=== PATIENT | male | born 1960 | race American Indian/Alaskan Native ===

== ENCOUNTER 2019-04-11 05:47 | Observation (INO) | payer BC ==
[2019-04-05 15:39] LABS: Basophils % (Auto) 0.8 % (0.0-1.8); Eosinophils # (Auto) 0.4 K/mm3 (0.0-0.4); Eosinophils % (Auto) 7.7 % (0.0-4.3); Hematocrit 43.3 % (35.5-45.6); Hemoglobin 14.9 gm/dl (11.8-15.2); Lymphocytes # (Auto) 1.9 K/mm3 (1.2-5.4); Lymphocytes % (Auto) 34.8 % (13.4-35.0); Mean Corpuscular HGB Conc 34 % (32-34); Mean Corpuscular Volume 95 fl (84-94); Monocytes # (Auto) 0.5 K/mm3 (0.0-0.8); Monocytes % (Auto) 9.1 % (0.0-7.3); Platelet Count 220 K/mm3 (140-440); Red Blood Count 4.56 M/mm3 (3.65-5.03); Red Cell Distribution Width 14.1 % (13.2-15.2)
[2019-04-05 15:50] LABS: INR 0.82 (0.87-1.13)
[2019-04-05 16:07] LABS: Alanine Aminotransferase 57 units/L (7-56); Albumin 4.8 g/dL (3.9-5); BUN/Creatinine Ratio 10; Blood Urea Nitrogen 11 mg/dL (9-20); Calcium 9.8 mg/dL (8.4-10.2); Hemolysis Index 41
[2019-04-11] MEDS ORDERED: ANCEF/STERILE WATER 2 GM/20 ML IV NR (06:00)
[2019-04-11] MEDS ORDERED: NACL BACTERIOSTATIC INFILTRATI ONE (06:13)
[2019-04-11] MEDS ORDERED: VERSED IV NR (07:27)
[2019-04-11] MEDS ORDERED: ZEMURON IV ONE (07:28)
[2019-04-11] MEDS ORDERED: NEURONTIN PO NR (07:28)
[2019-04-11] MEDS ORDERED: XYLOCAINE MPF 2% ONE (07:28)
[2019-04-11] MEDS ORDERED: PEPCID IV NR (07:28)
[2019-04-11] MEDS ORDERED: SUBLIMAZE ONE (07:29)
[2019-04-11] MEDS ORDERED: LACTATED RINGERS 1,000 ML IV SCH (07:29)
[2019-04-11] MEDS ORDERED: DIPRIVAN 10 MG/ML IV ONE ×2 (07:30→10:43)
[2019-04-11] MEDS ORDERED: CALCIUM CHLORIDE IV ONE ×2 (07:40→09:14)
[2019-04-11] MEDS ORDERED: ACD-A 500 ML IV ONE (07:40)
[2019-04-11] MEDS ORDERED: MARCAINE-EPI 0.5%-1:200,000 INFILTRATI ONE ×2 (07:40→09:13)
[2019-04-11] MEDS ORDERED: METHYLENE BLUE ONE (07:41)
--- NOTE | 2019-04-11 08:14 | Anesthesia Day of Surgery ---
Anesthesia Day of Surgery - Day of Surgery Patient Examined: Yes Patient H&P Reviewed: Yes Patient is NPO: Yes Beta Blockers: No Cardiac Clearance: Yes (HPI/bedside examination ) Pulmonary Clearance: Yes (HPI/bedside examination ) Doug's Test: N/A
--- NOTE | 2019-04-11 08:17 | Anesthesia Consultation ---
Anesthesia Consult and Med Hx - Airway Anesthetic Teeth Evaluation: Edentulous ROM Head & Neck: Adequate Mental/Hyoid Distance: Adequate Mallampati Class: Class II Intubation Access Assessment: Probably Good - Pulmonary Exam CTA: Yes - Cardiac Exam Cardiac Exam: RRR - Pre-Operative Health Status ASA Pre-Surgery Classification: ASA3 Proposed Anesthetic Plan: General - Pre-Anesthesia Comment Pre-Anesthesia Comments: NPO status, has HLD on statin, POCT glucose in preop 140s, last took metformin on 04/10 - Pulmonary Hx Smoking: No Hx Asthma: No Hx Respiratory Symptoms: No SOB: No Hx Sleep Apnea: No (FRANK PRE SCREEN LOW RISK) - Cardiovascular System Hx Hypertension: No (denies ) Hx Coronary Artery Disease: No Hx Peripheral Vascular Disease: No - Gastrointestinal Hx Gastroesophageal Reflux Disease: Yes (medication controlled ) - Hematic Hx Anemia: No - Other Systems Hx Alcohol Use: No Hx Substance Use: No Hx Cancer: Yes (prostate ) Hx Obesity: No - Additional Comments Anesthesia Medical History Comments: ASA 3 HLD, mild HTN (no meds), prostate CA, and well controlled DM on metformin (no HbA1c on file), reassuring airway - communicated HPI to Dr. Gibbs, the attending on record
[2019-04-11] MEDS ORDERED: NACL 0.9% IR ONE (09:13)
[2019-04-11] MEDS ORDERED: WATER FOR IRRIG STERILE IR ONE (09:13)
[2019-04-11] MEDS ORDERED: ACD-A IV ONE (09:14)
[2019-04-11] MEDS ORDERED: ZOFRAN ONE (10:04)
[2019-04-11] MEDS ORDERED: DILAUDID ONE (10:05)
[2019-04-11] MEDS ORDERED: NARCAN 0.4 MG/1 ML IV PRN (11:01)
[2019-04-11] MEDS ORDERED: MORPHINE IV PRN (11:01)
[2019-04-11] MEDS ORDERED: AMBIEN PO PRN (11:01)
[2019-04-11] MEDS ORDERED: D50W (25GM) Syringe IV PRN (11:01)
[2019-04-11] MEDS ORDERED: NORCO 5/325 PO PRN (11:01)
[2019-04-11] MEDS ORDERED: ZOFRAN IV PRN (11:01)
--- NOTE | 2019-04-11 11:01 | Short Stay Summary ---
Short Stay Documentation Date of service: 04/11/19 - History H&P: obtained from office - Allergies and Medications Current Medications: Allergies No Known Allergies Allergy (Verified 03/30/19 10:12) Home Medications Medication Instructions Recorded Confirmed Last Taken Type metFORMIN [Glucophage] 500 mg PO BID 03/30/19 03/30/19 04/10/19 History Cetirizine HCl [Zyrtec 10mg tab] 10 mg PO DAILY 04/11/19 04/11/19 04/10/19 Hi story Omeprazole 40 mg PO DAILY 04/11/19 04/11/19 1 Week Ago History ~04/04/19 Pravastatin [Pravachol] 40 mg PO DAILY 04/11/19 04/11/19 04/10/19 History Active Medications Cefazolin Sodium (Ancef/Sterile Water 2 Gm/20 Ml) 2 gm IV PREOP NR Stop: 04/11/19 21:00 Lactated Ringer's (Lactated Ringers) 1,000 mls @ 100 mls/hr IV DIRECT EDDIE Last Admin: 04/11/19 07:40 Dose: 100 mls/hr Documented by: - Brief post op/procedure progress note Date of procedure: 04/11/19 Pre-op diagnosis: prostate ca Post-op diagnosis: same Procedure: robotic prostatectomy Anesthesia: GETA Surgeon: MARTÍN REZA Estimated blood loss: other (150cc) Pathology: list (prostate) Specimen disposition: to lab Condition: stable - Hospital course Hospital course: bactrim, norco, post op info on chart drain removed home with olivera - Disposition Condition at discharge: Stable Short Stay Discharge Plan Follow up with: COLLEEN ARANDA MD [Primary Care Provider] - 7 Days
--- NOTE | 2019-04-11 12:18 | Operative Report ---
PREOPERATIVE DIAGNOSIS: Prostate cancer, Cando 8. POSTOPERATIVE DIAGNOSIS: Prostate cancer, Jonatan 8. PROCEDURE: Robotic-assisted laparoscopic prostatectomy. SURGEON: Sam Middleton MD ANESTHESIA: General. REAL PROPERTY APPRAISER: Amanda Ji. ESTIMATED BLOOD LOSS: 150 mL. FLUIDS: Crystalloid. DRAIN: Shashank-Alfred drain x 1. INDICATIONS: This 59-year-old male was actually seen by Dr. Pinedo in our [place] office. He underwent transrectal ultrasound and biopsy of his prostate. He was found to have Cando 8 adenocarcinoma of the prostate. He is referred to ca for robotic prostatectomy. His primary care physician is Dr. Ronnie Obrien. Risks, benefits, and complications were explained to the patient and his daughters. They agreed to proceed with surgical intervention. DESCRIPTION OF PROCEDURE: The patient was taken to the operative suite and placed in the supine position. After adequate general anesthesia, he was placed in a modified dorsal lithotomy position, prepped and draped in a sterile fashion. Rboert catheter was placed on the operative field. A 1-inch supraumbilical incision was made with the Bovie. Towel clips were placed. Veress needle was used for drop test, which was negative. Opening pressure was 4 cm of water. Insufflation of the abdomen to 15 cm of water was performed without difficulty. The pubic symphysis was marked in the midline, 15 cm cephalad was marked, additional 9 cm lateral as well as another additional 9 cm lateral marked due to small pelvis. The robotic ports were marked. A 0-degree lens was placed under direct vision in the supraumbilical port. No intraabdominal injury could be appreciated. Under direct vision, the 8 mm ports were placed on the left side, an 8 mm port on the right as well as a 10 mm and 5 mm helper ports. The patient was then placed in exaggerated Trendelenburg position. Robotic cart was docked between the legs. There were some adhesions in the left colon, which were taken down without difficulty. The second arch was identified behind the prostate gland. It was scored. Seminal vesicles and vas deferens were dissected out. The dissection to the apex of the prostate was also performed. Then copious irrigation was performed and adequate hemostasis was achieved. Lateral to the lateral umbilical ligament was scored bilaterally. Bladder flap was dropped exposing the pubic rami. Endopelvic fascia was opened bilaterally without difficulty. There was a small tedious vessel coming from the area of the iliacs. A small white clip was placed on it and it was cauterized. Dorsal vein complex was identified, controlled with a 60 mm vascular stapler. Endopelvic fascia was taken down laterally without difficulty. Manipulation of the Robert was able to identify the bladder neck, which was scored anteriorly. Robert catheter was deflated and brought anteriorly and used for traction. Posterior bladder neck was transected without difficulty. A 2-0 Vicryl helper stitch was placed at the 12 o'clock position of the bladder neck. The seminal vesicles and vas deferens were brought cephalad. Lateral pedicles were then controlled with a 60 mm vascular stapler. It was dissected down to the apex of the prostate. [place] of the dorsal vein complex was transected as well as the urethra distally. Prostate was placed in an EndoCatch bag. Copious irrigation was performed and adequate hemostasis achieved. Attention was then taken to the bladder neck, which was a bladder neck reconstruction at the 5 o'clock and 7 o'clock positions with 2-0 Vicryl in an interrupted fashion was performed. Double armed V-Loc stitch was placed in the 6 o'clock position of the bladder neck and the corresponding aspect of the urethra. Running stitch bilaterally was placed. A new 18-[place] Robert catheter was placed without difficulty into the bladder, irrigated, no clots, 20 mL in the balloon. Bladder suspension stitch was used attaching the V-Loc stitch to the back of the pubic rami bilaterally. Platelet rich plasma was injected in the anastomosis as well as platelet poor plasma and a platelet membrane. Shashank-Alfred drain was brought out through the left 8 mm port and secured with 2-0 silk in interrupted fashion. The robotic cart was then undocked. The supraumbilical incision was extended to allow removal of the prostate. That incision was then closed with 0 Vicryl in interrupted fashion x 3. This Shashank-Alfred drain was secured with a 2-0 silk in interrupted fashion. Robert catheter site port was folded over and tied with 0 silk in an interrupted fashion. The patient tolerated the procedure well. He was extubated and taken to recovery room. He will be observed overnight and go home on Bactrim and Dumont. Amanda Ji was the boiler assistant operator. She was present throughout the case at the bedside to assist with surgical dissection. [facility]# [id number] [place]YCE
[2019-04-11] MEDS: NACL 0.9% 1000 ML 1,000 ML IV SCH ×2 (12:42→22:14)
--- NOTE | 2019-04-11 12:54 | Consultation ---
History of Present Illness - Reason for Consult Consult date: 04/11/19 Medical management Requesting physician: MARTÍN MIDDLETON - History of Present Illness 59 YO Male with HTN, DM, HLD, GERD admitted to [facility] for elective Prostatectomy. Consult placed by Dr. Middleton for medical management. Pt seen and evaluated upon arrival to his room. Pt denies fever, chills, CP, Palpitations, NVD, Productive cough, or recent ill contacts. Pt states that pain is controlled. No reported nursing events. Past History Past Medical History: diabetes, GERD, hypertension, hyperlipidemia Past Surgical History: Other (Proatatectomy) Social history: single. denies: smoking, prescription drug abuse Family history: diabetes, hypertension Medications and Allergies Allergies Allergy/AdvReac Type Severity Reaction Status Date / Time No Known Allergies Allergy Verified 03/30/19 10:12 Home Medications Medication Instructions Recorded Confirmed Last Taken Type metFORMIN [Glucophage] 500 mg PO BID 03/30/19 03/30/19 04/10/19 History Cetirizine HCl [Zyrtec 10mg tab] 10 mg PO DAILY 04/11/19 04/11/19 04/10/19 History Omeprazole 40 mg PO DAILY 04/11/19 04/11/19 1 Week Ago History ~04/04/19 Pravastatin [Pravachol] 40 mg PO DAILY 04/11/19 04/11/19 04/10/19 History Active Meds: Active Medications Acetaminophen/Hydrocodone Bitart ([place] 5/325) 2 each PO Q4H PRN PRN Reason: Pain, Moderate (4-6) Cefazolin Sodium (Ancef/Sterile Water 2 Gm/20 Ml) 2 gm IV PREOP NR Stop: 04/11/19 21:00 Dextrose (D50w (25gm) Syringe) 50 ml IV PRN PRN PRN Reason: Hypoglycemia Lactated Ringer's (Lactated Ringers) 1,000 mls @ 100 mls/hr IV DIRECT EDDIE Last Admin: 04/11/19 07:40 Dose: 100 mls/hr Documented by: Sodium Chloride (Nacl 0.9% 1000 Ml) 1,000 mls @ 100 mls/hr IV DIRECT EDDIE Last Admin: 04/11/19 12:42 Dose: 100 mls/hr Documented by: Cefazolin Sodium (Ancef/Ns 1 Gm/50 Ml) 1 gm in 50 mls @ 100 mls/hr IV Q8H [facility]; Protocol Stop: 04/11/19 20:29 Insulin Human Regular (Humulin R) 0 units SUB-Q Q6HR [facility]; Protocol Metformin HCl (Glucophage) 500 mg PO BID [facility] Morphine Sulfate (Morphine) 2 mg IV Q4H PRN PRN Reason: Pain, Moderate (4-6) Naloxone HCl (Narcan 0.4 Mg/1 Ml) 0.1 mg IV Q2MIN PRN PRN Reason: Res Rate </= 8 or 02 SAT < 92% Ondansetron HCl (Zofran) 4 mg IV Q8H PRN PRN Reason: Nausea And Vomiting Pantoprazole Sodium (Protonix) 40 mg PO DAILY [facility] Pravastatin Sodium (Pravachol) 40 mg PO DAILY [facility] Zolpidem Tartrate (Ambien) 5 mg PO QHS PRN PRN Reason: Sleep Review of Systems Constitutional: no weight loss, no weight gain, no fever Ears, nose, mouth and throat: no ear pain, no tinnitis, no nose pain Cardiovascular: no chest pain, no palpitations, no edema Respiratory: no cough, no excessive sputum, no shortness of breath Gastrointestinal: no abdominal pain, no vomiting, no constipation Genitourinary Male: no hematuria, no discharge Rectal: no pain, no incontinence, no bleeding Musculoskeletal: no neck stiffness, no shooting arm pain, no low back pain Integumentary: no rash, no redness, no wounds Neurological: no head injury, no weakness, no tingling, no syncope Psychiatric: no anxiety, no change in sleep habits, no insomnia, no change in libido Endocrine: no cold intolerance, no polyphagia, no excessive thirst, no excessive sweating Hematologic/Lymphatic: no easy bruising, no easy bleeding Allergic/Immunologic: no urticaria, no allergic rhinitis, no persistent infections Exam - Constitutional Vitals: Temp Pulse Resp BP Pulse Ox 98.2 F 82 18 127/60 98 04/11/19 11:47 04/11/19 11:47 04/11/19 11:47 04/11/19 11:47 04/11/19 11:47 General appearance: Present: no acute distress, well-nourished - EENT Eyes: Present: PERRL ENT: hearing intact, clear oral mucosa - Neck Neck: Present: supple, normal ROM - Respiratory Respiratory effort: normal Respiratory: bilateral: CTA - Cardiovascular Heart Sounds: Present: S1 & S2. Absent: rub, click - Extremities Extremities: pulses symmetrical, No edema Peripheral Pulses: within normal limits - Abdominal General gastrointestinal: Present: soft, non-tender, non-distended, normal bowel sounds Male genitourinary: Present: normal - Integumentary Integumentary: Present: clear, warm, dry - Musculoskeletal Musculoskeletal: gait normal, strength equal bilaterally - Psychiatric Psychiatric: appropriate mood/affect, intact judgment & insight - Neurologic Neurologic: CNII-XII intact, moves all extremities Results - Labs CBC & Chem 7: 04/05/19 15:05 04/05/19 15:05 Labs: Abnormal lab results 04/11/19 04/11/19 Range/Units 06:48 11:31 POC Glucose 149 H 245 H (70-105) Assessment and Plan - Patient Problems (1) HTN (hypertension) Current Visit: Yes Status: Acute Qualifiers: Hypertension type: essential hypertension Qualified Code(s): I10 - Essential (primary) hypertension Plan to address problem: Monitor bp q shift, IV hydralazine prn, (2) HLD (hyperlipidemia) Current Visit: Yes Status: Acute Qualifiers: Hyperlipidemia type: mixed hyperlipidemia Qualified Code(s): E78.2 - Mixed hyperlipidemia Plan to address problem: Low cholesterol diet, statin therapyz (3) GERD (gastroesophageal reflux disease) Current Visit: Yes Status: Acute Qualifiers: Esophagitis presence: without esophagitis Qualified Code(s): K21.9 - Gastro-esophageal reflux disease without esophagitis Plan to address problem: PPI therapy, (4) Diabetes Current Visit: Yes Status: Acute Plan to address problem: ADA diet, insulin, accu check, hypoglycemia protocol
[2019-04-11] MEDS: ANCEF/NS 1 GM/50 ML 1 GM/50 ML BAG IV SCH ×2 (12:57→22:15)
[2019-04-11] MEDS: HumuLIN R SUB-Q SCH ×3 (12:58→23:11)
[2019-04-11] MEDS ORDERED: GLUCOPHAGE PO SCH (22:00)
[2019-04-12] MEDS ORDERED: APRESOLINE IV PRN (05:09)
[2019-04-12 05:52] LABS: Basophils # (Auto) 0.1 K/mm3 (0.0-0.1); Basophils % (Auto) 0.7 % (0.0-1.8); Eosinophils % (Auto) 0.3 % (0.0-4.3); Hematocrit 37.3 % (35.5-45.6); Hemoglobin 12.9 gm/dl (11.8-15.2); Lymphocytes # (Auto) 1.8 K/mm3 (1.2-5.4); Lymphocytes % (Auto) 20.5 % (13.4-35.0); Mean Corpuscular HGB Conc 35 % (32-34); Mean Corpuscular Volume 96 fl (84-94); Monocytes # (Auto) 0.9 K/mm3 (0.0-0.8); Monocytes % (Auto) 10.5 % (0.0-7.3); Platelet Count 178 K/mm3 (140-440); Red Cell Distribution Width 14.3 % (13.2-15.2)
[2019-04-12 06:19] LABS: BUN/Creatinine Ratio 10; Blood Urea Nitrogen 11 mg/dL (9-20); Calcium 8.9 mg/dL (8.4-10.2); Hemolysis Index 7
[2019-04-12] MEDS: HumuLIN R SUB-Q SCH ×2 (06:36→13:09)
[2019-04-12] MEDS: NACL 0.9% 1000 ML 1,000 ML IV SCH (06:41)
[2019-04-12 08:19] VITALS: BP 119/77
[2019-04-12] MEDS ORDERED: PROTONIX PO SCH (10:00)
[2019-04-12] MEDS ORDERED: PRAVACHOL PO SCH (10:00)
[2019-04-12] MEDS ORDERED: NON-FORMULARY (Omeprazole [Omeprazole] 40 MG) PO SCH (10:00)
--- NOTE | 2019-04-12 14:58 | Progress Note ---
Assessment and Plan Assessment and plan: 59 YO Male with HTN, DM, HLD, GERD admitted to [facility] for elective Prostatectomy. Consult placed by Dr. Middleton for medical management. Pt denies fever, chills, CP, Palpitations, NVD, Productive cough, or recent ill contacts. Pt states that pain is controlled. No reported nursing events. Hypertension - Controlled continue current medication regimen Diabetes mellitus - Continue sliding scale insulin Prostate cancer status post prostatectomy - Continue management per primary Patient is medically stable, will continue along. Thank you for the consultation History Interval history: Patient was seen and evaluated this morning, patient didn't have any complaints. Hospitalist Physical - Physical exam Narrative exam: Not in cardiopulmonary distress. The patient appeared well nourished and normally developed. Vital signs as documented. Head exam is unremarkable. No scleral icterus . Neck is without jugular venous distension, thyromegaly, or carotid bruits. Lungs are clear to auscultation. Cardiac exam reveals regular rate and Rhythm. First and second heart sounds normal. No murmurs, rubs or gallops. Abdominal exam reveals normal bowel sounds, no masses, no organomegaly and no aortic enlargement. Extremities are nonedematous and both femoral and pedal pulses are normal. 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 No focal weakness. - Constitutional Vitals: Temp Pulse Resp BP Pulse Ox 98.3 F 95 H 18 119/77 96 04/12/19 08:00 04/12/19 08:00 04/12/19 08:00 04/12/19 08:00 04/12/19 04:17 General appearance: Present: no acute distress, well-nourished Results - Labs CBC & Chem 7: 04/12/19 05:31 04/12/19 05:31 Labs: Laboratory Last Values WBC 8.6 K/mm3 (4.5-11.0) 04/12/19 05:31 RBC 3.90 M/mm3 (3.65-5.03) 04/12/19 05:31 Hgb 12.9 gm/dl (11.8-15.2) 04/12/19 05:31 Hct 37.3 % (35.5-45.6) 04/12/19 05:31 MCV 96 fl (84-94) H 04/12/19 05:31 MCH 33 pg (28-32) H 04/12/19 05:31 MCHC 35 % (32-34) H 04/12/19 05:31 RDW 14.3 % (13.2-15.2) 04/12/19 05:31 Plt Count 178 K/mm3 (140-440) 04/12/19 05:31 Lymph % (Auto) 20.5 % (13.4-35.0) 04/12/19 05:31 Elk % (Auto) 10.5 % (0.0-7.3) H 04/12/19 05:31 Eos % (Auto) 0.3 % (0.0-4.3) 04/12/19 05:31 Baso % (Auto) 0.7 % (0.0-1.8) 04/12/19 05:31 Lymph # 1.8 K/mm3 (1.2-5.4) 04/12/19 05:31 Elk # 0.9 K/mm3 (0.0-0.8) H 04/12/19 05:31 Eos # 0.0 K/mm3 (0.0-0.4) 04/12/19 05:31 Baso # 0.1 K/mm3 (0.0-0.1) 04/12/19 05:31 Seg Neutrophils % 68.0 % (40.0-70.0) 04/12/19 05:31 Seg Neutrophils # 5.9 K/mm3 (1.8-7.7) 04/12/19 05:31 PT 11.8 Sec. (12.2-14.9) L 04/05/19 15:05 INR 0.82 (0.87-1.13) L 04/05/19 15:05 APTT 27.0 Sec. (24.2-36.6) 04/05/19 15:05 Sodium 141 mmol/L (137-145) 04/12/19 05:31 Potassium 3.8 mmol/L (3.6-5.0) 04/12/19 05:31 Chloride 103.8 mmol/L (98-107) 04/12/19 05:31 Carbon Dioxide 26 mmol/L (22-30) 04/12/19 05:31 15 mmol/L 04/12/19 05:31 BUN 11 mg/dL (9-20) 04/12/19 05:31 1.1 mg/dL (0.8-1.5) 04/12/19 05:31 Estimated GFR > 60 ml/min 04/12/19 05:31 10 % 04/12/19 05:31 Glucose 189 mg/dL (75-100) H 04/12/19 05:31 POC Glucose 167 (70-105) H 04/12/19 12:49 Calcium 8.9 mg/dL (8.4-10.2) 04/12/19 05:31 0.50 mg/dL (0.1-1.2) 04/05/19 15:05 AST 33 units/L (5-40) 04/05/19 15:05 ALT 57 units/L (7-56) H 04/05/19 15:05 92 units/L (35-129) 04/05/19 15:05 7.1 g/dL (6.3-8.2) 04/05/19 15:05 4.8 g/dL (3.9-5) 04/05/19 15:05 2.1 % 04/05/19 15:05 Blood Type B POSITIVE 04/11/19 06:30 Antibody Screen Negative 04/11/19 06:30 Active Medications - Current Medications Current Medications: Generic Name Dose Route Start Last Admin Trade Name Nilsq PRN Reason Stop Dose Admin Acetaminophen/Hydrocodone Bitart 2 each 04/11/19 11:01 04/12/19 06:45 [place] 5/325 PO 2 each Q4H PRN Administration Pain, Moderate (4-6) Dextrose 50 ml 04/11/19 11:01 D50w (25gm) Syringe IV PRN PRN Hypoglycemia Hydralazine HCl 10 mg 04/12/19 05:09 Apresoline IV Q8H PRN Hypertension Lactated Ringer's 1,000 mls @ 100 mls/hr 04/11/19 07:29 04/11/19 07:40 Lactated Ringers IV 100 mls/hr DIRECT EDDIE Administration Sodium Chloride 1,000 mls @ 100 mls/hr 04/11/19 12:00 04/12/19 06:41 Nacl 0.9% 1000 Ml IV 100 mls/hr DIRECT EDDIE Administration Insulin Human Regular 0 units 04/11/19 12:00 04/12/19 13:09 Humulin R SUB-Q Not Given Q6HR [facility] Protocol Morphine Sulfate 2 mg 04/11/19 11:01 04/11/19 20:15 Morphine IV 2 mg Q4H PRN Administration Pain, Moderate (4-6) Naloxone HCl 0.1 mg 04/11/19 11:01 Narcan 0.4 Mg/1 Ml IV Q2MIN PRN Res Rate </= 8 or 02 SAT < 92% Ondansetron HCl 4 mg 04/11/19 11:01 Zofran IV Q8H PRN Nausea And Vomiting Pantoprazole Sodium 40 mg 04/12/19 10:00 04/12/19 09:59 Protonix PO 40 mg DAILY EDDIE Administration Pravastatin Sodium 40 mg 04/12/19 10:00 04/12/19 11:46 Pravachol PO 40 mg DAILY EDDIE Administration Zolpidem Tartrate 5 mg 04/11/19 11:01 Ambien PO QHS PRN Sleep
== END 2019-04-12 14:45 | disposition home or self-care (01) ==
LOC: OR 05:47 → 3B-SURG 11:01
PROVIDERS: ADMIT Urology; ATTEND Urology
DX: C61 Malignant neoplasm of prostate (principal); I10 Essential (primary) hypertension; E78.5 Hyperlipidemia, unspecified; K21.9 Gastro-esophageal reflux disease without esophagitis; E11.9 Type 2 diabetes mellitus without complications; Z90.79 Acquired absence of other genital organ(s); Z79.899 Other long term (current) drug therapy
CPT/HCPCS: 36415; 52601; 80048; 80053; 82962; 85025; 85610; 85730; 86850; 86900; 86901; 88309; 88342; 96365; 96366; 96372; 96375; A4217; A9270; G0378; J0690; J1170; J2250; J2270; J2405; J2704; J3010; J7030; J7120; S2900; 88341; 88344; J1815; Q9968

== ENCOUNTER 2021-02-26 08:07 | Outpatient (CLI) | payer BC ==
--- NOTE | 2021-02-26 09:23 | Cat Scan Report ---
CT abdomen pelvis wo con INDICATION: MALIGNANT NEOPLASM OF PROSTATE. TECHNIQUE: All CT scans at this location are performed using CT dose reduction for ALARA by means of automated e xposure control. COMPARISON: None available. FINDINGS: Lung bases are clear of active disease. 1.4 cm low-attenuation lesion in the superior liver may well represent a cyst, but this is difficult to confirm on a noncontrast exam. Gallbladder, spleen and olmstead creas are negative. Left kidney and both adrenals are normal. Nonobstructing calculus in the upper po le of the right kidney. Abdominal aorta is normal in size. No adenopathy. Pelvis Normal appendix. Prostate has been resected. Urinary bladder appears negative. No significant pelvic adenopathy. Extensive hypertrophic degenerative change of the left sacroiliac joint. No skeletal metastases. IMPRESSION: 1. Low-attenuation lesion in the superior liver is probably cystic, but this cannot be confirmed on t his noncontrast exam. Suggest ultrasound of the liver for further evaluation. Signer Name: Nathan Fields MD Signed: 02/26/2021 9:18 AM Workstation Name: [id number]
--- NOTE | 2021-02-26 14:09 | Nuclear Medicine Report ---
NUCLEAR MEDICINE BONE SCAN, WHOLE BODY INDICATION / CLINICAL INFORMATION: MALIGNANT NEOPLASM OF PROSTATE. TECHNIQUE: 25.1 mCi of Tc-99m MDP were injected IV. Images were obtained of the whole body. COMPARISON: CT dated 02/26/21 FINDINGS: BONES: No osseous lesion or other abnormality. JOINTS: Mild degenerative activity in both shoulders and sternoclavicular joints. SOFT TISSUES: No significant abnormality. KIDNEYS: No significant abnormality. ADDITIONAL FINDINGS: None. IMPRESSION: 1. No scintigraphic evidence for osseous metastatic disease. Signer Name: Erich Haro MD Signed: 02/26/2021 2:04 PM Workstation Name: [id number]
== END 2021-02-26 08:08 | disposition home or self-care (01) ==
LOC: NM 08:07
PROVIDERS: ATTEND Urology
DX: C61 Malignant neoplasm of prostate (principal); M46.1 Sacroiliitis, not elsewhere classified; M19.012 Primary osteoarthritis, left shoulder; M19.011 Primary osteoarthritis, right shoulder; M19.09 Primary osteoarthritis, other specified site
CPT/HCPCS: 74176; 78306